=== PATIENT | female | born 1960 | race Caucasian/White ===

== ENCOUNTER → 2020-10-12 12:29 | Outpatient (CLI) | payer BC, SELFPAY ==
--- NOTE | ~2020-10-12 | DEXA_ITS ---
Bone Density Report Name: Adenike Alaniz Age: 59 Sex: Female Ethnicity: White Date of : 1960 Indication: postmenopausal; screening for osteoporosis; parental hip fracture; height loss; Referring Provider: MONI DANG Study: Bone densitometry was performed. Exam Date: October 12, 2020 Accession number: [id number] Bone Density: Region BMD T-score Z-score Classification AP Spine (L1-L4) 0.904 -1.3 0.0 Osteopenia Femoral Neck (Left) 0.780 -0.6 0.6 Normal Total Hip (Left) 0.941 0.0 0.9 Normal Femoral Neck (Right) 0.751 -0.9 0.3 Normal Total Hip (Right) 0.935 -0.1 0.8 Normal Total Hip Mean 0.938 -0.1 0.9 Normal World Health Organization criteria for BMD impression classify patients as: Normal (T-score at or above -1.0), Osteopenia (T-score between -1.0 and -2.5), or Osteoporosis (T-score at or below -2.5). 10-year Fracture Risk(1): Major Osteoporotic Fracture 13% Hip Fracture 0.3% Reported Risk Factors: [place] (), Neck BMD=0.751, BMI=23.4, parental fracture (1) FRAX(R) Version 3.08. Fracture probability calculated for an untreated patient. Fracture probability may be lower if the patient has received treatment. Previous Exams: Region Exam Age BMD T-score BMD Change BMD Change Date g/cm2 vs Baseline vs Previous AP Spine(L1-L4) 10/12/2020 59 0.904 -1.3 -0.167* -0.060* 09/26/2016 55 0.964 -0.8 -0.107* -0.027* 10/04/2013 52 0.991 -0.5 -0.080* -0.080* 07/23/2010 49 1.071 0.2 Total Hip(Left) 10/12/2020 59 0.941 0.0 -0.119* -0.036* 09/26/2016 55 0.977 0.3 -0.082* -0.034* 10/04/2013 52 1.011 0.6 -0.049* -0.049* 07/23/2010 49 1.059 1.0 Total Hip(Right) 10/12/2020 59 0.935 -0.1 -0.093* -0.025 09/26/2016 55 0.960 0.1 -0.068* -0.027 10/04/2013 52 0.987 0.4 -0.041* -0.041* 07/23/2010 49 1.028 0.7 *Denotes significance at 95% confidence level, LSC for AP Spine = 0.022 g/cm2, LSC for Total Hip = 0.027 g/cm2 Clinical Information Provided by Patient: Parent has had a hip fracture Has used the following medications: Vitamin D, Calcium Patient maximum height was 66 Menopause Age: 44 Does not regularly consume dairy products Drinks caffeinated beverages Onset of menses at age 15 Number of children 1 Impres
== END ==
PROVIDERS: Visit Provider Obstetrics & Gynecology Gynecology
DX: Z78.0 Asymptomatic menopausal state (principal); M85.88 Other specified disorders of bone density and structure, other site
CPT/HCPCS: 77080

== ENCOUNTER 2021-01-25 11:53 | Emergency (ER) | payer BC, SELFPAY ==
[2021-01-25 12:09] VITALS: BP 107/74; PULSE 82; RESP 16; TEMP 36.6; O2SAT 99
--- NOTE | 2021-01-25 12:09 | ED.GENADULT ---
HPI - General Adult General Chief complaint: Upper Respiratory Infection Stated complaint: Sore Throat Time Seen by Provider: 01/25/21 12:10 Source: patient Mode of arrival: ambulatory Limitations: no limitations History of Present Illness HPI narrative: 60-year-old female patient presents to the [facility] with complaints of sore throat for the past 5 days. Patient states she has also had little bit of nausea and some diarrhea that occurred yesterday. Denies any vomiting. Denies any fevers, body aches or chills. Denies any coughing. Patient states she has had a little bit of fullness to the right ear. Denies any runny nose or stuffy nose. Patient states she has taken Benadryl one time and some Aleve yesterday once. Related Data Home Medications Medication Instructions Recorded Confirmed duloxetine 60 mg capsule,delayed 60 mg PO DAILY 09/18/19 release estradiol [Imvexxy Maintenance mcg VAGINAL 01/25/21 Pack] Allergies Allergy/AdvReac Type Severity Reaction Status Date / Time Sulfa (Sulfonamide Allergy Unknown Other Verified 04/16/19 14:37 Antibiotics) Review of Systems Review of Systems: Narrative: CONSTITUTIONAL: Denies fever, chills, or sweats. EYES: Denies visual changes, redness, or discharge. ENT: Denies rhinorrhea, congestion, positive sore throat, and right otalgia. CARDIOVASCULAR: Denies chest pain, palpitations, or edema. RESPIRATORY: Denies cough or dyspnea. GASTROINTESTINAL: Denies abdominal pain, positive nausea, denies vomiting, positive diarrhea. GENITOURINARY: Denies dysuria or hematuria. SKIN: Denies rash or itching. MUSCULOSKELETAL: Denies back pain, joint pain, or myalgia. NEUROLOGIC: Denies headache, numbness, or weakness. PSYCHIATRIC: Denies anxiety or depression. PENDING SALE TO [facility] Past Medical History Medical History Osteoarthritis of left knee Surgical History Surgical History H/O lateral meniscus repair of left knee (~11/2006) History of carpal tunnel surgery of left wrist (~11/2017) History of carpal tunnel surgery of right wrist (~12/2013) History of endometrial ablation (~2004) History of medial meniscus repair of left knee (~12/2018) Status post surgical manipulation of knee joint (~06/2019) Family History Family History Other Cancer Epilepsy Diabetes mellitus Social History Social History Smoking status: Never smoker Alcohol intake: never Comments At the time of my signature I agree with nursing past medical history, surgical, social, and family history. There is no relevant family history pertinent to the presenting complaint. Exam Narrative: Exam Narrative: GENERAL: Well-appearing, well-nourished, and in no acute distress. HEAD: Normocephalic, atraumatic. EYES: PERRLA and EOMI. ENT: Nares with erythema edema noted bilaterally, no rhinorrhea or epistaxis. Mucous membranes moist. Posterior pharynx with slight erythema but no tonsil erythema, no exudates or lesions present. Bilateral TMs are clear no erythema or foreign bodies in the canal. NECK: Supple. No lymphadenopathy CHEST: Clear to auscultation. No respiratory distress. HEART: Regular rate and rhythm. No murmur heard. Normal peripheral pulses. ABDOMEN: Soft, nontender, nondistended, normal active bowel sounds. EXTREMITIES: Normal range of motion. No edema. SKIN: Warm, dry, no rash. NEURO: No focal deficits. Alert and oriented x3. Course Vital Signs Vital signs: Vital Signs Temperature 36.6 C 01/25/21 12:09 Pulse Rate 82 01/25/21 12:09 Respiratory Rate 16 01/25/21 12:09 Blood Pressure 107/74 01/25/21 12:09 Pulse Oximetry 99 01/25/21 12:09 Temperature 36.6 C 01/25/21 12:09 Pulse Rate 82 01/25/21 12:09 Respiratory Rate 16 01/25/21 12:09 Blood Pressure 10
--- NOTE | 2021-01-25 12:39 | PC.NURSE ---
asad called for pcr covid swab p/u
[2021-01-26 18:33] LABS: SARS-CoV-2 RNA PCR Negative
== END 2021-01-25 12:40 | disposition home or self-care (01) ==
PROVIDERS: Emergency Provider Nurse Practitioner Family
DX: J02.9 Acute pharyngitis, unspecified (principal); Z20.822 Contact with and (suspected) exposure to COVID-19; M17.12 Unilateral primary osteoarthritis, left knee; M79.7 Fibromyalgia
CPT/HCPCS: 87081; 87426; 87880; 99213; C9803; G0463; U0003; U0005

== ENCOUNTER 2021-11-14 11:21 | Emergency (ER) | payer BC, SELFPAY ==
--- NOTE | 2021-11-14 11:31 | ED.URI ---
HPI - URI/Sore Throat General Chief Complaint: Upper Respiratory Infection Stated Complaint: bob/sore throat/body aches Time Seen by Provider: 11/14/21 12:21 Source: patient and RN notes reviewed Mode of arrival: ambulatory Limitations: no limitations History of Present Illness HPI Narrative: 61-year-old female presents with concern for sinus pressure, frontal headache, body aches. Reports symptoms started yesterday. Reports she had a Covid exposure. Reports she took Tylenol without relief. She denies cough, shortness of breath, fever. Reports headaches a 08/22. MD elicited complaint: cough and sore throat Related Data Home Medications Medication Instructions Recorded Confirmed duloxetine 60 mg capsule,delayed 60 mg PO DAILY 09/18/19 11/14/21 release Allergies Allergy/AdvReac Type Severity Reaction Status Date / Time Sulfa (Sulfonamide Allergy Unknown Other Verified 11/14/21 12:09 Antibiotics) Review of Systems Review of Systems: CONSTITUTIONAL: Reports malaise. Denies chills, sweats, or fever. EYES: Denies visual changes, redness, or discharge. ENT: Denies rhinorrhea, congestion, sinus pain, otalgia. Reports sore throat. CARDIOVASCULAR: Denies chest pain, palpitations, or edema. RESPIRATORY: Denies cough. Denies dyspnea. GASTROINTESTINAL: Denies abdominal pain, nausea, vomiting, diarrhea SKIN: Denies rash or itching. MUSCULOSKELETAL: Reports myalgia. NEUROLOGIC: Reports headache. All systems reviewed & are unremarkable except as noted in HPI and below PMFSH Past Medical History Medical History Osteoarthritis of left knee Surgical History Surgical History H/O lateral meniscus repair of left knee (~11/2006) History of carpal tunnel surgery of left wrist (~11/2017) History of carpal tunnel surgery of right wrist (~12/2013) History of endometrial ablation (~2004) History of medial meniscus repair of left knee (~12/2018) Status post surgical manipulation of knee joint (~06/2019) Family History Family History Other Cancer Epilepsy Diabetes mellitus Social History Social History Smoking status: Never smoker Alcohol intake: never Comments At time of signature, agree with nursing past medical, surgical, social and family history. There is no relevant family history pertinent to the presenting complaint Exam Narrative: GENERAL: Well-appearing, well-nourished, and in no acute distress. HEAD: Normocephalic EYES: PERRLA, conjunctivae clear ENT: Nares clear. Mucous membranes moist. TM pearly chakraborty with dull light reflex bilaterally; no tragal tenderness. Oropharynx not erythematous without lesions. Tonsils not enlarged and without exudate, no drooling, no hoarseness, no trismus, uvula midline. NECK: Supple. No lymphadenopathy CHEST: Clear to auscultation, breath sounds equal. No wheezing, rhonchi, rales, or stridor. No respiratory distress, speaks in full sentences. HEART: Regular rate and rhythm. No murmur heard. SKIN: Warm, dry, no rash. NEURO: Alert and oriented x3. No focal deficits PSYCH: Normal mood and affect Course Course Emergency Course: Patient is aware of diagnosis, understands and agrees to treatment plan. Anticipatory guidance given. Patient agrees to follow-up as directed and is aware of reasons to seek care at the emergency department. Portions of this record may have been created with voice recognition software Level of Care: Express Care Visit Vital Signs Vital signs: Vital Signs Temperature 98.2 F 11/14/21 11:44 Pulse Rate 75 11/14/21 11:44 Respiratory Rate 16 11/14/21 11:44 Blood Pressure 138/82 11/14/21 11:44 Pulse Oximetry 99 11/14/21 11:44 Temperature 98.2 F 11/14/21 11:44 Pulse Rate 75 11/14/21 11:44 Respiratory Rate 16
[2021-11-14 11:44] VITALS: BP 138/82; PULSE 75; RESP 16; TEMP 36.8; O2SAT 99
[2021-11-14] MEDS: KETOROLAC (*BKC) 60 MG/2 ML VIAL IM (12:37)
== END 2021-11-14 12:55 | disposition home or self-care (01) ==
PROVIDERS: Emergency Provider Nurse Practitioner
DX: U07.1 COVID-19 (principal); M17.12 Unilateral primary osteoarthritis, left knee
CPT/HCPCS: 87426; 96372; 99213; C9803; G0463; J1885

== ENCOUNTER → 2022-10-14 14:17 | Outpatient (CLI) | payer BC, SELFPAY ==
--- NOTE | ~2022-10-14 | DEXA_ITS ---
Bone Density Report Name: MATI CARRASCO Age: 61 Sex: Female Ethnicity: White Date of : 1960 Indication: osteopenia; parental hip fracture; height loss; postmenopausal Referring Provider: MONI DANG Study: Bone densitometry was performed. Exam Date: October 14, 2022 Accession number: [id number] Bone Density: Region BMD T-score Z-score Classification AP Spine (L1-L4) 0.904 -1.3 0.2 Osteopenia Femoral Neck (Left) 0.749 -0.9 0.4 Normal Total Hip (Left) 0.932 -0.1 0.9 Normal Femoral Neck (Right) 0.742 -1.0 0.4 Normal Total Hip (Right) 0.935 -0.1 0.9 Normal Total Hip Mean 0.934 -0.1 0.9 Normal World Health Organization criteria for BMD impression classify patients as: Normal (T-score at or above -1.0), Osteopenia (T-score between -1.0 and -2.5), or Osteoporosis (T-score at or below -2.5). 10-year Fracture Risk(1): Major Osteoporotic Fracture 15% Hip Fracture 0.5% Reported Risk Factors: [place] (), Neck BMD=0.742, BMI=25.0, parental fracture (1) FRAX(R) Version 3.08. Fracture probability calculated for an untreated patient. Fracture probability may be lower if the patient has received treatment. Previous Exams: Region Exam Age BMD T-score BMD Change BMD Change Date g/cm2 vs Baseline vs Previous AP Spine(L1-L4) 10/14/2022 61 0.904 -1.3 -0.167* 0.000 10/12/2020 59 0.904 -1.3 -0.167* -0.060* 09/26/2016 55 0.964 -0.8 -0.107* -0.027* 10/04/2013 52 0.991 -0.5 -0.080* -0.080* 07/23/2010 49 1.071 0.2 Total Hip(Left) 10/14/2022 61 0.932 -0.1 -0.128* -0.009 10/12/2020 59 0.941 0.0 -0.119* -0.036* 09/26/2016 55 0.977 0.3 -0.082* -0.034* 10/04/2013 52 1.011 0.6 -0.049* -0.049* 07/23/2010 49 1.059 1.0 Total Hip(Right) 10/14/2022 61 0.935 -0.1 -0.093* 0.000 10/12/2020 59 0.935 -0.1 -0.093* -0.025 09/26/2016 55 0.960 0.1 -0.068* -0.027 10/04/2013 52 0.987 0.4 -0.041* -0.041* 07/23/2010 49 1.028 0.7 *Denotes significance at 95% confidence level, LSC for AP Spine = 0.022 g/cm2, LSC for Total Hip = 0.027 g/cm2 Clinical Information Provided by Patient: Parent has had a hip fracture Has used the following medications: Vitamin D, Calcium, MTV Patient maximum height was 66 Menopause Age: 44 Drinks caffeinated beverag
== END ==
PROVIDERS: Visit Provider Obstetrics & Gynecology Gynecology
DX: Z78.0 Asymptomatic menopausal state (principal); M85.88 Other specified disorders of bone density and structure, other site
CPT/HCPCS: 77080

== ENCOUNTER 2023-02-20 17:10 | Emergency (ER) | payer BC, SELFPAY ==
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
[2023-02-20 17:18] VITALS: BP 118/71; PULSE 85; RESP 18; TEMP 36.6; O2SAT 99
[2023-02-20] MEDS: TETANUS,DIPHTHERIA,AC PERTUSSIS ADULT (0.5 ML) BOOSTRIX IM (17:32)
== END 2023-02-20 17:45 | disposition home or self-care (01) ==
PROVIDERS: Emergency Provider Nurse Practitioner Family
DX: S61.412A Laceration without foreign body of left hand, initial encounter (principal); W22.8XXA Striking against or struck by other objects, initial encounter; Z23 Encounter for immunization; M17.12 Unilateral primary osteoarthritis, left knee
CPT/HCPCS: 73130; 90471; 90715; 99212; G0463

== ENCOUNTER 2023-05-18 17:39 | Emergency (ER) | payer OTHER, SELFPAY ==
[2023-05-18 17:54] VITALS: BP 113/68; PULSE 76; RESP 16; TEMP 36.6; O2SAT 97
--- NOTE | 2023-05-18 18:02 | ED.WOUNDLAC ---
HPI - Wound/Laceration General Chief Complaint: Wound/Laceration Stated Complaint: Left Hand Finger Pain(Animal Bite) Time Seen by Provider: 05/18/23 18:02 Source: patient Mode of arrival: ambulatory Limitations: no limitations History of Present Illness HPI narrative: 62-year-old female presents with dog bite to left index finger. Injury happened at approximately 10:00 a.m.. Patient reports that a dog that she was grooming bit her. States she finished the grooming and finished her shift prior to being seen. Reports history similar dog bites. Knows that she needs an antibiotic. Tetanus is up-to-date. All systems reviewed and negative except as noted above. Related Data Home Medications Medication Instructions Recorded Confirmed duloxetine 60 mg capsule,delayed 60 mg PO DAILY 09/18/19 02/20/23 release (Cymbalta) Allergies Allergy/AdvReac Type Severity Reaction Status Date / Time Sulfa (Sulfonamide Allergy Unknown Other Verified 05/18/23 17:54 Antibiotics) Review of Systems Review of Systems: CONSTITUTIONAL: Denies fever, chills, or sweats. EYES: Denies visual changes, redness, or discharge. ENT: Denies rhinorrhea, congestion, sore throat, or otalgia. CARDIOVASCULAR: Denies chest pain, palpitations, or edema. RESPIRATORY: Denies cough or dyspnea. GASTROINTESTINAL: Denies abdominal pain, nausea, vomiting, or diarrhea. GENITOURINARY: Denies dysuria or hematuria. SKIN: Denies rash or itching. Reports dog bite to left index finger. MUSCULOSKELETAL: Denies back pain, joint pain, or myalgia. NEUROLOGIC: Denies headache, numbness, or weakness. PSYCHIATRIC: Denies anxiety or depression. All other systems reviewed are negative, except as documented in HPI. [facility] Past Medical History Medical History Osteoarthritis of left knee Surgical History Surgical History H/O lateral meniscus repair of left knee (~11/2006) History of carpal tunnel surgery of left wrist (~11/2017) History of carpal tunnel surgery of right wrist (~12/2013) History of endometrial ablation (~2004) History of medial meniscus repair of left knee (~12/2018) Status post surgical manipulation of knee joint (~06/2019) Family History Family History Other Cancer Epilepsy Diabetes mellitus Social History Social History Smoking status: Never smoker Alcohol intake: never Comments At time of signature, agree with nursing past medical, surgical, social and family history. There is no relevant family history pertinent to the presenting complaint. Exam Narrative: GENERAL: This is a well-nourished, well-developed patient, in no apparent distress. HEAD: normocephalic, atraumatic. EYES: PERRL. Sclera clear/white. Vision is grossly intact. EARS: External ears normal NOSE: External nose normal NECK: Neck supple, non-tender without lymphadenopathy, masses or thyromegaly. CARDIOVASCULAR: Regular rate and rhythm without murmurs, gallops, or rubs. RESPIRATORY: Clear to auscultation. Breath sounds equal bilaterally. No wheezes, rales, or rhonchi. SKIN: warm, Dry, no suspicious lesions or rash, good texture and turgor. 7 puncture wounds to L index finger. Continues to have some scant bleeding to puncture wound to PIP which is the worse of the wound. entire L index finger swollen. ROM and distally NV intact. NEURO: awake, alert, and oriented to person, place and time. There were no obvious focal neurologic abnormalities. EXTREMITIES: No joint tenderness, effusion, or edema noted. Course Course Level of Care: Express Care Visit Vital Signs Vital signs: Vital Signs Temperature 36.6 C 05/18/23 17:54 Pulse Rate 76 05/18/23 17:54 Respiratory Rate 16 05/18/23 17:54 Blood
== END 2023-05-18 18:14 | disposition home or self-care (01) ==
PROVIDERS: Emergency Provider Nurse Practitioner Family
DX: S61.231A Puncture wound without foreign body of left index finger without damage to nail, initial encounter (principal); W54.0XXA Bitten by dog, initial encounter; M17.12 Unilateral primary osteoarthritis, left knee
CPT/HCPCS: 29130; 99213; G0463

== ENCOUNTER 2024-04-12 14:20 | Emergency (ER) | payer BC, SELFPAY ==
--- NOTE | ~2024-04-12 | XR_ITS ---
EXAM: XR foot LT min 3V DATE: 04/12/2024 14:58 HISTORY: left 2nd toe pain x 2 weeks ? etiology . COMPARISON: None available. FINDINGS: Normal mineralization. No fracture or dislocation. No lytic or blastic lesion. Mild degene rative change at the first MTP joint. Small os navicularis. Prominent os trigonum. No erosion or kristine osteal change. Soft tissues within normal limits. IMPRESSION: No acute osseous finding in the left foot. Reviewed, dictated and finalized at location K.
[2024-04-12 14:34] VITALS: BP 110/71; PULSE 88; RESP 16; TEMP 36.7; O2SAT 100
--- NOTE | 2024-04-12 14:44 | ED.EXTPRO ---
HPI - Extremity Problem General Chief complaint: Extremity Problem,Nontraumatic Stated complaint: left foot pain Time Seen by Provider: 04/12/24 14:22 Source: patient Mode of arrival: ambulatory Limitations: no limitations History of Present Illness HPI Narrative: Patient is a 63-year-old female that presents with 2 weeks of left 2nd toe pain. Patient states there is little to no pain at rest but by the end of day of walking it is painful. Reports mild pain on palpation. Patient still able to wiggle toes normally and sensation is intact. Denies any known trauma. Patient called drill operator and was told she should get an x-ray. Patient has not been taking any Tylenol or ibuprofen. Related Data Home Medications Medication Instructions Recorded Confirmed amitriptyline 25 mg tablet 25 mg PO HS 04/12/24 04/12/24 duloxetine 60 mg capsule,delayed 60 mg PO DAILY 04/12/24 04/12/24 release Allergies Allergy/AdvReac Type Severity Reaction Status Date / Time Sulfa (Sulfonamide Allergy Intermediate Hives Verified 04/12/24 14:47 Antibiotics) Review of Systems Review of Systems: All systems reviewed & are unremarkable except as noted in HPI and below Constitutional: Constitutional: Denies body ache(s), Denies chills, Denies fatigue, Denies fever(s), Denies headache(s), Denies malaise and Denies weakness Eyes: Eyes: Denies blurry vision, Denies irritation and Denies loss of vision ENT: Denies otalgia, Denies headache(s), Denies nasal discharge, Denies sinus pain and Denies sore throat Cardiovascular: Cardiovascular: Denies chest pain, Denies irregular heart rhythm and Denies dyspnea Respiratory: Respiratory: Denies dyspnea Gastrointestinal: Gastrointestinal: Denies abdominal pain, Denies melena, Denies hematochezia, Denies diarrhea, Denies nausea and Denies vomiting Musculoskeletal: Musculoskeletal: Denies back pain, Denies myalgias and Reports arthralgias Integumentary/Breasts: Skin/Breast: Denies pruritus and Denies rash Neurologic: Denies headache(s), Denies loss of vision and Denies weakness Psychiatric: Psychiatric: Reports no additional psychiatric complaints Endocrine: Endocrine: Denies fatigue PMFSH Past Medical History Medical History Osteoarthritis of left knee Surgical History Surgical History H/O lateral meniscus repair of left knee (~11/2006) History of carpal tunnel surgery of left wrist (~11/2017) History of carpal tunnel surgery of right wrist (~12/2013) History of endometrial ablation (~2004) History of medial meniscus repair of left knee (~12/2018) Status post surgical manipulation of knee joint (~06/2019) Family History Family History Other Cancer Epilepsy Diabetes mellitus Social History Social History Smoking status: Never smoker Alcohol intake: never Comments At time of signature, agree with nursing past medical, surgical, social and family history. There is no relevant family history pertinent to the presenting complaint. Exam Const: General: cooperative, healthy appearing, comfortable, no acute distress and well nourished Nutritional Appearance: well nourished Orientation/consciousness: patient oriented x3 Limitations: no limitations HENMT: Head: normal to inspection, normocephalic and atraumatic Ears: hearing grossly normal bilaterally and external ears normal Face/Nose/Sinus: Normal external nose present, normal facial exam and face symmetric Face and sinus: normal facial exam and face symmetric Mouth: Yes lip normal Eyes: General: appearance normal, both eyes and all related structures Alignment and Position: alignment normal and position normal Periorbital: periorbital findings normal Eyelids: eyelids normal Pupils: Equal, round and reactive
== END 2024-04-12 15:32 | disposition home or self-care (01) ==
PROVIDERS: Emergency Provider Nurse Practitioner Family
DX: M19.072 Primary osteoarthritis, left ankle and foot (principal); M17.12 Unilateral primary osteoarthritis, left knee
CPT/HCPCS: 73630; 99213; G0463